=== PATIENT | male | born 1995 | race Caucasian/White ===

== ENCOUNTER 2018-01-19 18:29 | Emergency (ER) | payer OTHER ==
[~2018-01-19] VITALS: Ht 170.2 cm; Wt 78.9 kg
== END 2018-01-19 20:31 | disposition home or self-care (01) ==
LOC: ER 18:29
DX: S01.121A Laceration with foreign body of right eyelid and periocular area, initial encounter (principal); W26.8XXA Contact with other sharp object(s), not elsewhere classified, initial encounter; Y93.89 Activity, other specified; Y92.828 Other wilderness area as the place of occurrence of the external cause; Y99.8 Other external cause status

== ENCOUNTER 2018-01-29 21:46 | Emergency (ER) | payer OTHER ==
[~2018-01-29] VITALS: Ht 218.4 cm; Wt 72.6 kg
== END 2018-01-29 23:00 | disposition home or self-care (01) ==
LOC: ER 21:46
DX: Z48.02 Encounter for removal of sutures (principal)